=== PATIENT | female | born 1960 | race Hispanic/Latino ===

== ENCOUNTER 2017-04-07 09:09 | Outpatient (CLI) | payer MEDICARE ==
[2017-04-07 10:14] LABS: Blood Urea Nitrogen 6 mg/dL (7-17)
--- NOTE | 2017-04-08 12:29 | Cat Scan Report ---
CT ABDOMEN AND PELVIS WITH CONTRAST: 04/07/17 09:09:00 CLINICAL: Hypo-osmolality and hyponatremia. COMPARISON: None. TECHNIQUE: Volumetric acquisition and 1.25 millimeter scan reconstructions after the uneventful intravenous injection of 100 cc Omnipaque 300. Consent was obtained prior to the administration of contrast. Oral contrast was also given. FINDINGS: Abdomen: The lung bases are clear.Normal liver and bile ducts status post cholecystectomy. Normal stomach, duodenum, pancreas and spleen. Normal kidneys with normal nondilated renal collecting systems and ureters. A right adrenal gland is not identified. The left adrenal gland is mildly enlarged with thickening and irregularity of the lateral limb. Measures 10 mm in maximum thickness. No distinct adrenal nodule is identified. Normal aorta and inferior vena cava.Normal small bowel. Normal ascending, transverse and descending colon. The appendix is normal. No mass or ascites. Pelvis: Normal uterus and urinary bladder. Uterus measures 6.6 x 2.3 x 4.9 cm. Normal small ovaries. The rectum is normal. Mild diverticulosis in the midportion of the sigmoid colon. This is associated with moderate wall thickening but no signs of acute diverticulitis. Bone windows demonstrate no bone lesion. IMPRESSION:1. Mild left adrenal enlargement with no distinct nodular mass. Absent right adrenal gland. 2. Status post cholecystectomy. 3. Sigmoid diverticulosis but no diverticulitis.
== END 2017-04-07 09:10 | disposition home or self-care (01) ==
LOC: CT 09:09
PROVIDERS: ATTEND Internal Medicine Nephrology
DX: E87.1 Hypo-osmolality and hyponatremia (principal); K57.30 Diverticulosis of large intestine without perforation or abscess without bleeding; E27.8 Other specified disorders of adrenal gland; F17.200 Nicotine dependence, unspecified, uncomplicated; Z90.89 Acquired absence of other organs; Z90.49 Acquired absence of other specified parts of digestive tract; Z79.899 Other long term (current) drug therapy
CPT/HCPCS: 36415; 74177; 82565; 84520; Q9967

== ENCOUNTER 2017-07-18 01:52 | Emergency (ER) | payer MEDICARE ==
--- NOTE | 2017-07-18 06:57 | Cat Scan Report ---
FINAL REPORT EXAM: CT HEAD/BRAIN WO CON HISTORY: Headache TECHNIQUE: Routine axial imaging was obtained of the brain without IV contrast. FINDINGS: There is no evidence of acute stroke or hemorrhage. The ventricular system is appropriate in size and is symmetric. The basal cisterns appear normal. The sinuses reveal opacification of the left frontal and left ethmoidal air cells. The mastoid air cells are well pneumatized. The calvarium appears intact. IMPRESSION: No evidence of acute stroke or hemorrhage. Left frontal and left ethmoidal sinusitis.
[2017-07-18 07:47] LABS: BUN/Creatinine Ratio 25; Blood Urea Nitrogen 10 mg/dL (7-17); Calcium 9.1 mg/dL (8.4-10.2); Hemolysis Index 70
[2017-07-18 07:49] LABS: Hematocrit 41.8 % (30.3-42.9); Hemoglobin 14.5 gm/dl (10.1-14.3); Mean Corpuscular HGB Conc 35 % (30-34); Mean Corpuscular Hemoglobin 34 pg (28-32); Mean Corpuscular Volume 96 fl (79-97); Platelet Count 291 K/mm3 (140-440); Red Blood Count 4.34 M/mm3 (3.65-5.03); Red Cell Distribution Width 12.5 % (13.2-15.2)
[2017-07-18] MEDS ORDERED: ZOFRAN ODT PO ONE (09:21)
[2017-07-18] MEDS ORDERED: TORADOL IM ONE (09:21)
[2017-07-18] MEDS ORDERED: MORPHINE IM ONE (09:21)
--- NOTE | 2017-07-18 09:41 | Emergency Department Report ---
ED General Adult HPI - General Chief complaint: Headache Stated complaint: HEADACHE Time Seen by Provider: 07/18/17 08:57 Source: patient, EMS Mode of arrival: Ambulatory Limitations: No Limitations - History of Present Illness Initial comments: Patient complains of the acute onset of headache last night but intermittent headaches last 9-10 days. She states that when she gets her migraine headaches her left eye gets puffy. She says that she's had for prior strokes but they haven't really left any residual. 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 She states that her headache has improved now. She has been on Fioricet for these headaches in the past. She states it's only been partially effective. -: Gradual Location: head Radiation: non-radiation Severity scale (0 -10): 0 Quality: aching Consistency: intermittent, now resolved (now improved) Improves with: none Worsens with: none Associated Symptoms: denies other symptoms Treatments Prior to Arrival: other (Fioricet) - Related Data Home Medications Medication Instructions Recorded Confirmed Last Taken ALPRAZolam [Xanax] 1 tab PO QID 07/25/13 07/25/13 07/25/13 Cholecalciferol (Vitamin D3) 50,000 unit PO QWEEK 07/25/13 07/25/13 07/22/13 [Vitamin D] Esomeprazole Magnesium [Nexium] 1 tab PO DAILY 07/25/13 07/25/13 07/25/13 Levothyroxine [Synthroid] 1 tab PO DAILY 07/25/13 07/25/13 07/25/13 Lisinopril [Zestril TAB] 20 tab PO DAILY 07/25/13 07/25/13 07/25/13 Metoprolol [Lopressor] 1 tab PO BID 07/25/13 07/25/13 07/25/13 Sertraline [Zoloft] 1 tab PO DAILY 07/25/13 07/25/13 07/25/13 Simvastatin [Zocor] 40 mg PO DAILY 07/25/13 07/25/13 07/25/13 Tocopherol (Nf) [Vitamin E Cap] 1 tab PO DAILY 07/25/13 07/25/13 07/25/13 Vit B Complex No.12/Niacin(B3) 1 tab PO DAILY 07/25/13 07/25/13 07/25/13 [Rabano Yodado Liquid] carBAMazepine [Tegretol] 1 tab PO QID 07/25/13 07/25/13 07/25/13 levETIRAcetam [Keppra] 1 tab PO BID 07/25/13 07/25/13 07/25/13 Previous Rx's Medication Instructions Recorded Last Taken Type HYDROcodone/APAP 5-325 [[place] 1 each PO Q8HR PRN #14 tablet 07/25/13 Unknown Rx 5/325 mg] Ondansetron [Zofran Odt] 4 mg PO Q4-6H #14 tab.rapdis 09/21/13 Unknown Rx Ondansetron [Zofran Odt] 4 mg PO Q6H PRN #7 tab.rapdis 07/18/17 Unknown Rx traMADol [Ultram] 50 mg PO Q6HR PRN #10 tablet 07/18/17 Unknown Rx Allergies Allergy/AdvReac Type Severity Reaction Status Date / Time No Known Allergies Allergy Unverified 09/21/13 17:26 ED Review of Systems ROS: Stated complaint: HEADACHE Other details as noted in HPI Constitutional: denies: chills, fever Eyes: other (states left thigh gets droopy with headaches). denies: eye pain, eye discharge, vision change ENT: other (denies any sinus congestion or pain). denies: ear pain, throat pain Respiratory: denies: cough, shortness of breath, wheezing Cardiovascular: denies: chest pain, palpitations Endocrine: no symptoms reported Gastrointestinal: denies: abdominal pain, nausea, diarrhea Genitourinary: denies: urgency, dysuria, discharge Musculoskeletal: denies: back pain, joint swelling, arthralgia Skin: denies: rash, lesions Neurological: headache. denies: weakness, paresthesias Psychiatric: denies: anxiety, depression Hematological/Lymphatic: denies: easy bleeding, easy bruising ED Past Medical Hx - Past Medical History Previous Medical History?: Yes Hx Hypertension: Yes Hx Diabetes: Yes Hx Seizures: Yes Additional medical history: high cholesterol, anxiety, tachycardia. 3 reported strokes, Hyponatremia - Surgical History Past Surgical History?: Yes Hx Cholecystectomy: Yes Additional Surgical History: tubal ligation, tonsillectomy - Social History Smoking Status: Current Every Day Smoker - Medications Home Medications: Home Medications Medication Instructions Recorded Confirmed Last Taken Type ALPRAZolam [Xanax] 1 tab PO QID 07/25/13 07/25/13 07/25/13 History Cholecalciferol (Vitamin D3) 50,000 unit PO QWEEK 07/25/13 07/25/13 07/22/13 History [Vitamin D] Esomeprazole Magnesium [Nexium] 1 tab PO DAILY 07/25/13 07/25/13 07/25/13 History HYDROcodone/APAP 5-325 [[place] 1 each PO Q8HR PRN #14 tablet 07/25/13 Unknown Rx 5/325 mg] Levothyroxine [Synthroid] 1 tab PO DAILY 07/25/13 07/25/13 07/25/13 History Lisinopril [Zestril TAB] 20 tab PO DAILY 07/25/13 07/25/13 07/25/13 History Metoprolol [Lopressor] 1 tab PO BID 07/25/13 07/25/13 07/25/13 History Sertraline [Zoloft] 1 tab PO DAILY 07/25/13 07/25/13 07/25/13 History Simvastatin [Zocor] 40 mg PO DAILY 07/25/13 07/25/13 07/25/13 History Tocopherol (Nf) [Vitamin E Cap] 1 tab PO DAILY 07/25/13 07/25/13 07/25/13 History Vit B Complex No.12/Niacin(B3) 1 tab PO DAILY 07/25/13 07/25/13 07/25/13 History [Rabano Yodado Liquid] carBAMazepine [Tegretol] 1 tab PO QID 07/25/13 07/25/13 07/25/13 History levETIRAcetam [Keppra] 1 tab PO BID 07/25/13 07/25/13 07/25/13 History Ondansetron [Zofran Odt] 4 mg PO Q4-6H #14 tab.rapdis 09/21/13 Unknown Rx Ondansetron [Zofran Odt] 4 mg PO Q6H PRN #7 tab.rapdis 07/18/17 Unknown Rx traMADol [Ultram] 50 mg PO Q6HR PRN #10 tablet 07/18/17 Unknown Rx ED Physical Exam - General Limitations: No Limitations General appearance: alert, in no apparent distress - Head Head exam: Present: atraumatic, normocephalic - Eye Eye exam: Present: normal appearance, PERRL, EOMI. Absent: scleral icterus - ENT ENT exam: Present: normal exam, mucous membranes moist, other (perhaps a very slight amount of periorbital edema on the left. There is no ptosis. There is no facial paresis.) - Neck Neck exam: Present: normal inspection. Absent: tenderness, meningismus - Respiratory Respiratory exam: Present: normal lung sounds bilaterally. Absent: respiratory distress - Cardiovascular Cardiovascular Exam: Present: regular rate, normal rhythm. Absent: systolic murmur, diastolic murmur, rubs, gallop - GI/Abdominal GI/Abdominal exam: Present: soft, normal bowel sounds. Absent: distended, tenderness, guarding, rebound, rigid - Extremities Exam Extremities exam: Present: normal inspection - Back Exam Back exam: Present: normal inspection - Neurological Exam Neurological exam: Present: alert, oriented X3, CN II-XII intact. Absent: motor sensory deficit - Psychiatric Psychiatric exam: Present: normal affect, normal mood - Skin Skin exam: Present: warm, dry, intact, normal color. Absent: rash ED Course Vital Signs 07/18/17 07/18/17 07/18/17 01:58 03:38 08:12 Temperature 98.0 F 98.0 F Pulse Rate 72 72 Respiratory 16 16 Rate Blood Pressure 139/69 139/69 149/79 O2 Sat by Pulse 97 97 96 Oximetry 07/18/17 07/18/17 08:27 08:28 Temperature 98.7 F Pulse Rate Respiratory 16 Rate Blood Pressure O2 Sat by Pulse 97 Oximetry - Reevaluation(s) Reevaluation #1: Given analgesia. The patient will follow up with her neurologist. Return any acute change or problems. 07/18/17 09:42 ED Medical Decision Making - Lab Data Result diagrams: 07/18/17 07:12 07/18/17 07:12 Critical care attestation.: If time is entered above; I have spent that time in minutes in the direct care of this critically ill patient, excluding procedure time. ED Disposition Clinical Impression: Cephalalgia Qualifiers: Headache type: unspecified Headache chronicity pattern: episodic headache Intractability: not intractable Qualified Code(s): R51 - Headache Disposition: DC-01 TO HOME OR SELFCARE Is pt being admited?: No Does the pt Need Aspirin: No Condition: Stable Instructions: Acute Headache (ED), Migraine Headache (ED) Additional Instructions: Follow-up with the neurologist. Return any acute change or problems. Prescriptions: Ondansetron [Zofran Odt] 4 mg PO Q6H PRN #7 tab.rapdis PRN Reason: Nausea traMADol [Ultram] 50 mg PO Q6HR PRN #10 tablet PRN Reason: Pain Referrals: CONRAD ORTIZ MD, PHD [Primary Care Provider] - 24 Hours usual, neurologist [Other] - 2-3 Days Time of Disposition: 09:46
[2017-07-18 09:54] VITALS: BP 141/79
== END 2017-07-18 10:05 | disposition home or self-care (01) ==
LOC: ED 01:52
DX: R51 Headache (principal); I10 Essential (primary) hypertension; E11.9 Type 2 diabetes mellitus without complications; F17.200 Nicotine dependence, unspecified, uncomplicated
CPT/HCPCS: 36415; 70450; 80048; 85027; 96372; 99284; J1885; J2270; Q0162

== ENCOUNTER 2018-07-06 10:15 | Outpatient (CLI) | payer MEDICARE ==
--- NOTE | 2018-07-06 15:25 | Mammography Report ---
BILATERAL DIGITAL SCREENING MAMMOGRAM : 07/06/18 10:15:00 CLINICAL: Routine screening. COMPARISON: 01/24/13 and 01/03/11 FINDINGS: There are bilateral scattered areas of fibroglandular density.No mass, architectural distortion or suspicious calcifications. IMPRESSION: No mammographic evidence of malignancy. BI-RADS CATEGORY: 1 -- Negative RECOMMENDATION: Routine mammographic screening in one year. COMMENT: Patient follow-up letters are generated by our [employer] application.
== END 2018-07-06 10:16 | disposition home or self-care (01) ==
LOC: SPVWC 10:15
DX: Z12.31 Encounter for screening mammogram for malignant neoplasm of breast (principal); I10 Essential (primary) hypertension
CPT/HCPCS: 77067